=== PATIENT | male | born 1990 | race American Indian/Alaskan Native ===

== ENCOUNTER 2017-02-18 11:50 | Emergency (ER) | payer MEDICAID, OTHER ==
[2017-02-18 12:26] VITALS: BP 129/80
--- NOTE | 2017-02-18 12:32 | EDM.PDOC ---
ED HPI GENERAL MEDICAL PROBLEM - General Chief Complaint: Upper Extremity Injury/Pain Stated Complaint: INJURED LEFT THUMB Time Seen by Provider: 02/18/17 12:25 Source of Information: Reports: Patient History Limitations: Reports: No Limitations - History of Present Illness INITIAL COMMENTS - FREE TEXT/NARRATIVE: Jose presents to the emergency room today with acute onset of left thumb pain and injury. He was changing a serpentine belt on an automobile when the belt snapped, caught his thumb and bent it. He reports difficulty moving thumb, pain and edema. He denies any other injuries. Onset: Today Severity: Moderate Improves with: Reports: None Worsens with: Reports: Movement Left Hand Pain Score (Numeric/FACES): 7 - Related Data Allergies Allergy/AdvReac Type Severity Reaction Status Date / Time No Known Allergies Allergy Verified 02/18/17 12:27 Home Meds: Home Meds NK [No Known Home Meds] 02/18/17 [History] Past Medical History - Past Surgical History Other Musculoskeletal Surgeries/Procedures:: BILAT HAND FX, L THUMB FX Social & Family History - Tobacco Use Smoking Status *Q: Unknown Ever Smoked Review of Systems - Review of Systems Review Of Systems: See Below Constitutional: Reports: No Symptoms Eyes: Reports: No Symptoms Ears: Reports: No Symptoms Mouth/Throat: Reports: No Symptoms Respiratory: Denies: Shortness of Breath, Wheezing, Cough, Sputum, Hemoptysis Cardiovascular: Denies: Chest Pain, Edema, Syncope GI/Abdominal: Reports: No Symptoms Musculoskeletal: Reports: Hand Pain, Other (Pain to left thumb with edema and decreased range of motion. ) Skin: Reports: No Symptoms Neurological: Reports: No Symptoms Psychiatric: Reports: No Symptoms ED EXAM, GENERAL - Physical Exam Exam: See Below Free Text/Narrative:: Jose is a pleasant 26 year old male presenting with acute injury to left hand/ thumb. Exam Limited By: No Limitations General Appearance: Alert, WD/WN, Mild Distress Eye Exam: Bilateral Eye: EOMI, PERRL Head: Atraumatic, Normocephalic Neck: Normal Inspection, Supple, Non-Tender, Full Range of Motion. No: Lymphadenopathy (R), Lymphadenopathy (L) Respiratory/Chest: No Respiratory Distress, Lungs Clear, Normal Breath Sounds, No Accessory Muscle Use, Chest Non-Tender Cardiovascular: Normal Peripheral Pulses, Regular Rate, Rhythm, No Edema, No Murmur Peripheral Pulses: 2+: Radial (L), Radial (R) Back Exam: Normal Inspection, Full Range of Motion. No: CVA Tenderness (R), CVA Tenderness (L) Extremities: Other (Pain and edema to left thumb and 1st metacarpal, decreased ROM, sensation intact. ) Neurological: Alert, Oriented, CN II-XII Intact, Normal Cognition, No Motor/ Sensory Deficits Psychiatric: Normal Affect, Normal Mood Skin Exam: Warm, Dry Lymphatic: No Adenopathy Course - Vital Signs Last Recorded V/S: Last Vital Signs Temp 36.8 C 02/18/17 12:25 Pulse 112 H 02/18/17 12:25 Resp 15 02/18/17 12:25 BP 129/80 02/18/17 12:25 Pulse Ox 98 02/18/17 12:25 - Orders/Labs/Meds Orders: Active Orders 24 hr Category Date Time Status Hand 2V Lt [CR] Stat Exams 02/18/17 12:32 Taken Meds: Medications Discontinued Medications Generic Name Dose Route Start Last Admin Trade Name Loretta PRN Reason Stop Dose Admin Ibuprofen 800 mg 02/18/17 12:34 02/18/17 12:47 Motrin PO 02/18/17 12:35 800 mg ONETIME ONE Administration - Radiology Interpretation Free Text/Narrative:: Left hand x-ray wet read, mildly displaced fracture of left 1st metacarpal. Karen Crespo NP ORTHO notified, images reviewed by her. Will place a thumb spica splint and have patient report to ORTHO on TuesdayFebruary 21. Patient notified, he is in agreement with plan. Departure - Departure Time of Disposition: 13:30 Disposition: Home, Self-Care 01 Condition: Good Clinical Impression: Fracture of first metacarpal bone of left hand - Discharge Information Instructions: Metacarpal Fracture, [id number] Referrals: PCP,None [Primary Care Provider] - Forms: ED Department Discharge Additional Instructions: You have a mildly displaced fracture of the first metacarpal left hand. Keep the splint in place, clean and dry. Return to see [facility]THO here at [facility] TuesdayFebruary 21. You will see Karen Ibarra NP or Dr. Cynthia Raza. You may take ibuprofen 800mg by mouth three times a day with food for pain. For break through pain you can take tramadol 50mg by mouth three times a day. ( script provided for #15 tablets). Ice, elevate the hand to decrease pain. Return for worsening, issues or concerns. - My Orders Last 24 Hours: My Active Orders 02/18/17 12:32 Hand 2V Lt [CR] Stat - Assessment/Plan Last 24 Hours: My Active Orders 02/18/17 12:32 Hand 2V Lt [CR] Stat Assessment:: Mildly displaced fracture of left 1st metacarpal Thumb spica splint applied. Plan: Keep the splint in place, clean and dry. Return to see ORTHO here at [facility] TuesdayFebruary 21. Patient will see Karen Ibarra NP or Dr. Cynthia Raza. Patient take ibuprofen 800mg by mouth three times a day with food for pain. For break through pain he can take tramadol 50mg by mouth three times a day. ( script provided for #15 tablets). Ice, elevate the hand to decrease pain. Return for worsening, issues or concerns. [place] [employer] reviewed, no recent narcotic fills.
[2017-02-18] MEDS ORDERED: Ibuprofen 800 MG Tab PO ONE (12:34)
--- NOTE | 2017-02-18 14:03 | CR ---
Hand 2V Lt INDICATION: injury to thumb COMPARISON: None FINDINGS: 3 views. Fracture base of the first metacarpal with mild medial angulation of the distal fracture fragment.
== END 2017-02-18 13:55 | disposition home or self-care (01) ==
LOC: JP.ED 11:50
DX: S62.202A Unspecified fracture of first metacarpal bone, left hand, initial encounter for closed fracture (principal); W31.9XXA Contact with unspecified machinery, initial encounter
CPT/HCPCS: 29125; 73120; 99284; A9270; 99283-25

== ENCOUNTER 2017-11-16 20:58 | Emergency (ER) | payer MEDICAID ==
[2017-11-16 22:08] VITALS: BP 138/89
[2017-11-16] MEDS ORDERED: Acetaminophen/HYDROcodone 325-5 MG Tab PO ONE (22:47)
--- NOTE | 2017-11-16 22:52 | EDM.PDOC ---
ED HPI GENERAL MEDICAL PROBLEM - General Chief Complaint: Lower Extremity Injury/Pain Stated Complaint: RIGHT ANKLE SWOLLEN AND LACERATED Time Seen by Provider: 11/16/17 22:32 Source of Information: Reports: Patient, RN Notes Reviewed History Limitations: Reports: No Limitations - History of Present Illness INITIAL COMMENTS - FREE TEXT/NARRATIVE: Came with his Chief complaint Bilateral valencia injury History of present illness 26-year-old male was at the swimming hole at [place], slipped on the wet deck, landing on both of his shins. Immediate pain and was better for 45 minutes then started hurting after that. The swelling and abrasion on the right valencia, superficial abrasion left valencia. Did not injure ankles although he has had prior injury. No other injuries Came to emergency at the insistence of his family because he is having so much pain. He came reluctantly Not currently employed Immunization status up-to-date Right Lower Leg Pain Score (Numeric/FACES): 7 - Related Data Allergies Allergy/AdvReac Type Severity Reaction Status Date / Time No Known Allergies Allergy Verified 02/18/17 12:27 Home Meds: Home Meds NK [No Known Home Meds] 02/18/17 [History] Past Medical History - Past Health History Medical/Surgical History: Denies Medical/Surgical History - Past Surgical History HEENT Surgical History: Reports: Tonsillectomy Other Musculoskeletal Surgeries/Procedures:: BILAT HAND FX, L THUMB FX Social & Family History - Tobacco Use Smoking Status *Q: Former Smoker Years of Tobacco use: 10 Packs/Tins Daily: 0.5 Used Tobacco, but Quit: Yes Month/Year Tobacco Last Used: october 2017 - Caffeine Use Caffeine Use: Reports: Coffee - Recreational Drug Use Recreational Drug Use: No Review of Systems - Review of Systems Review Of Systems: See Below Constitutional: Reports: No Symptoms Respiratory: Reports: No Symptoms Cardiovascular: Reports: No Symptoms Musculoskeletal: Reports: Leg Pain (Both shins) Skin: Reports: Pruritis (Itchy rash for 2 weeks arms or legs trunk) Neurological: Reports: No Symptoms Psychiatric: Reports: No Symptoms ED EXAM, GENERAL - Physical Exam Exam: See Below Exam Limited By: No Limitations General Appearance: Alert, No Apparent Distress, Other (Vital signs within normal, appears healthy) Eye Exam: Bilateral Eye: Normal Inspection Ears: Hearing Grossly Normal Nose: Normal Inspection Throat/Mouth: Normal Inspection Head: Atraumatic, Normocephalic Neck: Normal Inspection, Supple, Non-Tender Respiratory/Chest: No Respiratory Distress, No Accessory Muscle Use Cardiovascular: Normal Peripheral Pulses, Regular Rate, Rhythm Extremities: Other (Small hematoma anterior aspect of right valencia with abrasion, Small contusion left valencia) Neurological: Alert, Oriented, No Motor/Sensory Deficits Skin Exam: Warm, Dry, Other (Scattered symmetric papular rash, nonerythematous) Lymphatic: No Adenopathy Course - Vital Signs Last Recorded V/S: Last Vital Signs Temp 37.0 C 11/16/17 22:14 Pulse 85 11/16/17 22:14 Resp 16 11/16/17 22:14 BP 138/89 11/16/17 22:14 Pulse Ox 98 11/16/17 22:14 - Orders/Labs/Meds Orders: Active Orders 24 hr Category Date Time Status Acetaminophen/HYDROcodone [[place] 325-5 MG] Med 11/16/17 22:47 Once 2 tab PO ONETIME ONE Ice Therapy [OM.PC] Routine Oth 11/16/17 22:47 Ordered - Re-Assessments/Exams Free Text/Narrative Re-Assessment/Exam: 11/16/17 22:51 26-year-old male with blunt injury to his shins He is able to ambulate, some limping, but full weightbearing Itchy rash suggestive of swimmer's itchg Cold pack, hydrocodone/acetaminophen 5/325, 2 tablets by mouth Supportive treatment Departure - Departure Time of Disposition: 22:52 Disposition: Home, Self-Care 01 Condition: Good Clinical Impression: Contusion, lower limb, multiple sites Qualifiers: Encounter type: initial encounter Laterality: unspecified laterality Qualified Code(s): S80.10XA - Contusion of unspecified lower leg, initial encounter - Discharge Information Instructions: Contusion, [id number] Referrals: PCP,None [Primary Care Provider] - Additional Instructions: Cold is usually helpful for the first 24 hours, but can be used longer if it continues to be helpful. Acetaminophen or ibuprofen for pain as needed Elevation can also help his pain. Stay as active as possible Get rechecked if signs of infection occur such as increased redness, cloudy discharge from the wound or red streaks going up the leg - My Orders Last 24 Hours: My Active Orders 11/16/17 22:47 Acetaminophen/HYDROcodone [[place] 325-5 MG] 2 tab PO ONETIME ONE Ice Therapy [OM.PC] Routine - Assessment/Plan Last 24 Hours: My Active Orders 11/16/17 22:47 Acetaminophen/HYDROcodone [[place] 325-5 MG] 2 tab PO ONETIME ONE Ice Therapy [OM.PC] Routine
== END 2017-11-16 23:00 | disposition home or self-care (01) ==
LOC: JP.ED 20:58
DX: S80.11XA Contusion of right lower leg, initial encounter (principal); S80.12XA Contusion of left lower leg, initial encounter; Z87.891 Personal history of nicotine dependence; W18.40XA Slipping, tripping and stumbling without falling, unspecified, initial encounter; Y93.11 Activity, swimming
CPT/HCPCS: 99283; A9270

== ENCOUNTER 2018-06-04 18:01 | Emergency (ER) | payer MEDICAID ==
[2018-06-04 18:16] VITALS: BP 145/90
--- NOTE | 2018-06-04 19:49 | EDM.PDOC ---
ED HPI GENERAL MEDICAL PROBLEM - General Chief Complaint: Upper Extremity Injury/Pain Stated Complaint: FELL AND INJURED LEFT HAND Time Seen by Provider: 06/04/18 18:37 Source of Information: Reports: Patient History Limitations: Reports: No Limitations - History of Present Illness INITIAL COMMENTS - FREE TEXT/NARRATIVE: This patient slipped on the ice a short while ago landed on his left hand. He complains of pain in the area of the left fourth and fifth MCP joints. - Related Data Allergies Allergy/AdvReac Type Severity Reaction Status Date / Time No Known Allergies Allergy Verified 06/04/18 18:24 Home Meds: Home Meds NK [No Known Home Meds] 02/18/17 [History] Past Medical History - Past Health History Medical/Surgical History: Denies Medical/Surgical History - Past Surgical History HEENT Surgical History: Reports: Tonsillectomy Other Musculoskeletal Surgeries/Procedures:: BILAT HAND FX, L THUMB FX Social & Family History - Tobacco Use Smoking Status *Q: Current Every Day Smoker Years of Tobacco use: 12 Packs/Tins Daily: 0.2 - Caffeine Use Caffeine Use: Reports: Coffee Review of Systems - Review of Systems Review Of Systems: ROS reveals no pertinent complaints other than HPI. ED EXAM, GENERAL - Physical Exam Exam: See Below Exam Limited By: No Limitations General Appearance: Alert, WD/WN, No Apparent Distress Extremities: Other (There is some mild tenderness in the area of the left fourth and fifth MCP joints it's a little bit red but has had ice on it. Range of motion is limited. No obvious dislocation. Neurovascular tendon all intact) Course - Vital Signs Last Recorded V/S: Last Vital Signs Temp 36.9 C 06/04/18 18:15 Pulse 80 06/04/18 18:15 Resp 16 06/04/18 18:15 BP 145/90 H 06/04/18 18:15 Pulse Ox 93 L 06/04/18 18:15 - Orders/Labs/Meds Orders: Active Orders 24 hr Category Date Time Status Hand Comp Min 3V Lt [CR] Stat Exams 06/04/18 18:39 Taken - Radiology Interpretation Free Text/Narrative:: X-ray left hand shows no fracture or dislocation. Departure - Departure Time of Disposition: 19:48 Disposition: Home, Self-Care 01 Condition: Fair Clinical Impression: Contusion of left hand - Discharge Information Referrals: PCP,None [Primary Care Provider] - Additional Instructions: Elevate apply ice use Tylenol or ibuprofen for pain. An Conrado wrap may help. You should be better over the next few days. - My Orders Last 24 Hours: My Active Orders 06/04/18 18:39 Hand Comp Min 3V Lt [CR] Stat - Assessment/Plan Last 24 Hours: My Active Orders 06/04/18 18:39 Hand Comp Min 3V Lt [CR] Stat
--- NOTE | 2018-06-05 08:59 | CR ---
Hand Comp Min 3V Lt CLINICAL HISTORY: Trauma FINDINGS: There is no acute fracture or dislocation of the hand. There is mild deformity of the fifth metacarpal distally. This is likely related to old healed boxer's fracture. Impression: No acute fracture or dislocation
== END 2018-06-04 19:59 | disposition home or self-care (01) ==
LOC: JP.ED 18:01
DX: S60.222A Contusion of left hand, initial encounter (principal); F17.210 Nicotine dependence, cigarettes, uncomplicated; W00.0XXA Fall on same level due to ice and snow, initial encounter
CPT/HCPCS: 73130-26-LT; 73130-LT; 99282; 99284